=== PATIENT | male | born 1965 | race Caucasian/White ===

== ENCOUNTER 2019-01-04 08:50 | Emergency (ER) | payer BC ==
[2019-01-04] MEDS: KETOROLAC 60 MG INJ IM (09:28)
[2019-01-04 09:54] LABS: CREATININE 0.61 mg/dl (0.61-1.24)
== END 2019-01-04 10:42 | disposition home or self-care (01) ==
LOC: FTE 08:50
DX: M17.0 Bilateral primary osteoarthritis of knee (principal); E11.9 Type 2 diabetes mellitus without complications
CPT/HCPCS: 36415; 82565; 96372; 99284-25

== ENCOUNTER 2019-06-27 19:54 | Inpatient (IN) | payer BC ==
[2019-06-27] MEDS: ASPIRIN 325 MG TAB PO (20:19)
[2019-06-27] MEDS: SOD CHLORIDE 0.9% 1,000 ML IV ×3 (20:20→22:49)
[2019-06-27] MEDS: ONDANSETRON 4 MG INJ IV (20:21)
[2019-06-27] MEDS: NITROGLYCERIN 2% 1 GM OINT PKT TD (20:21)
[2019-06-27] MEDS: morphine 4 MG/ML VIAL IV (20:22)
[2019-06-27] MEDS: HEPARIN 1000 UNITS/ML 10 ML INJ IV (20:42)
[2019-06-27] MEDS ORDERED: FENTAnyl 50 MCG/ML VIAL (20:52)
[2019-06-27] MEDS ORDERED: LIDOCAINE 1% (MDV) 20 ML INJ (20:52)
[2019-06-27] MEDS ORDERED: MIDAZOLAM 1 MG/ML 2 ML INJ (20:52)
[2019-06-27] MEDS ORDERED: IODIXANOL LOCM 100 ML BTL (20:52)
[2019-06-27] MEDS ORDERED: HEPARIN 1000 UNITS/ML 10 ML INJ (20:52)
[2019-06-27] MEDS ORDERED: SOD CHLORIDE 0.9% 500 ML (20:53)
[2019-06-27] MEDS ORDERED: VERAPAMIL 5 MG INJ (20:53)
[2019-06-27] MEDS ORDERED: ACETAMINOPHEN 325 MG TAB PO (21:00)
[2019-06-27] MEDS: TICAGRELOR 90 MG TABLET PO (21:00)
[2019-06-27] MEDS ORDERED: ACETAMINOPHEN 650MG/20.3ML CUP PO (21:00)
[2019-06-27] MEDS ORDERED: BISACODYL (EC) 5 MG TAB PO (21:00)
[2019-06-27] MEDS ORDERED: ENALAPRILAT 1.25 MG INJ IV (21:00)
[2019-06-27] MEDS ORDERED: DOCUSATE SODIUM 100 MG CAP PO (21:00)
[2019-06-27] MEDS ORDERED: ONDANSETRON 4 MG INJ IV (21:00)
[2019-06-27] MEDS ORDERED: IPRATROPIUM (NEB) 0.5 MG/2.5 ML AMP NEB (21:00)
[2019-06-27] MEDS ORDERED: ALBUTEROL 0.083% (NEB) 2.5 MG/3 ML AMP NEB (21:00)
[2019-06-27] MEDS ORDERED: NITROGLYCERIN (SL) 0.4 MG TAB SL (21:00)
[2019-06-27] MEDS ORDERED: morphine 2 MG INJ IV ×2 (21:00)
[2019-06-27] MEDS ORDERED: OXYCODONE/ACETAMINOPHEN (5/325) TAB PO (21:00)
[2019-06-27] MEDS ORDERED: NITROGLYCERIN (IC) 100 MCG/ML INJ (21:51)
[2019-06-27] MEDS ORDERED: TICAGRELOR 90 MG TABLET (21:52)
[2019-06-27] MEDS ORDERED: METOPROLOL 5 MG INJ (21:55)
[2019-06-28] MEDS ORDERED: GLUCAGON 1 MG INJ IM (01:00)
[2019-06-28] MEDS: INSULIN ASPART [NOVOLOG] 3 ML PEN SC ×6 (01:00→22:01)
[2019-06-28] MEDS ORDERED: DEXTROSE 50% 50 ML SYRINGE IV ×2 (01:00)
[2019-06-28] MEDS ORDERED: GLUCOSE GEL 15 GRAM TUBE BUCCAL (01:00)
[2019-06-28] MEDS ORDERED: GLUCOSE GEL 15 GRAM TUBE PO ×2 (01:00)
[2019-06-28] MEDS ORDERED: ACCU-CHEK XX (02:00)
[2019-06-28] MEDS: PANTOPRAZOLE (EC) 40 MG TAB PO (05:03)
[2019-06-28] MEDS: SOD CHLORIDE 0.9% 1,000 ML IV ×2 (07:22→23:50)
[2019-06-28] MEDS: ASPIRIN (EC) 81 MG TAB PO (08:30)
[2019-06-28] MEDS: TICAGRELOR 90 MG TABLET PO ×2 (08:31→22:02)
[2019-06-28] MEDS: ACETYLCYSTEINE 600 MG CAP PO ×2 (09:00→21:51)
[2019-06-28] MEDS: METOPROLOL (XL) 25 MG TAB PO (09:10)
[2019-06-28] MEDS: EZETIMIBE 10 MG TAB PO (09:10)
[2019-06-28] MEDS: LOSARTAN 25 MG TAB PO (09:10)
[2019-06-28] MEDS: ACCU-CHEK XX ×2 (14:19→20:00)
[2019-06-28] MEDS ORDERED: ATORVASTATIN 80 MG TAB PO (21:00)
[2019-06-28] MEDS: INSULIN GLARGINE [LANTus] (100 UNITS/ML) SYG SC (22:02)
[2019-06-29] MEDS: ACCU-CHEK XX ×3 (02:17→14:13)
[2019-06-29] MEDS: PANTOPRAZOLE (EC) 40 MG TAB PO (05:36)
[2019-06-29] MEDS: INSULIN ASPART [NOVOLOG] 3 ML PEN SC ×2 (07:33→11:47)
[2019-06-29] MEDS: EZETIMIBE 10 MG TAB PO (08:58)
[2019-06-29] MEDS: ACETYLCYSTEINE 600 MG CAP PO (08:59)
[2019-06-29] MEDS: LOSARTAN 25 MG TAB PO (08:59)
[2019-06-29] MEDS: ASPIRIN (EC) 81 MG TAB PO (09:00)
[2019-06-29] MEDS: METOPROLOL (XL) 25 MG TAB PO (09:00)
[2019-06-29] MEDS: TICAGRELOR 90 MG TABLET PO (09:04)
[2019-06-29] MEDS: SOD CHLORIDE 0.9% 1,000 ML IV (11:43)
== END 2019-06-29 16:40 | disposition home health service (06) | DRG 247 ==
LOC: 6WM 06-28 17:05 → E/R 19:54 → ICU 20:31
PROC: 027035Z Dilation of Coronary Artery, One Artery with Two Drug-eluting Intraluminal Devices, Percutaneous Approach (ICD-10-PCS; principal; 2019-06-27)
PROC: 4A023N7 Measurement of Cardiac Sampling and Pressure, Left Heart, Percutaneous Approach (ICD-10-PCS; 2019-06-27)
PROC: B2101ZZ Fluoroscopy of Single Coronary Artery using Low Osmolar Contrast (ICD-10-PCS; 2019-06-27)
DX: I21.3 ST elevation (STEMI) myocardial infarction of unspecified site (principal); I25.10 Atherosclerotic heart disease of native coronary artery without angina pectoris; I44.7 Left bundle-branch block, unspecified; I10 Essential (primary) hypertension; R00.0 Tachycardia, unspecified; E11.9 Type 2 diabetes mellitus without complications; E78.5 Hyperlipidemia, unspecified; Z87.891 Personal history of nicotine dependence
CPT/HCPCS: 36415; 71045; 80048; 80053; 80061; 82306; 82550; 82553; 82962; 83036; 84443; 84484; 85025; 85610; 85730; 87081; 93005; 93306; 93458; 96374; 96375; 99285-25